=== PATIENT | male | born 1980 | race Caucasian/White ===

== ENCOUNTER 2021-02-27 09:50 | Day surgery (SDC) | payer OTHER ==
[~2021-02-27] VITALS: Ht 170.2 cm; Wt 73.9 kg
[~2021-02-27 09:50] MED LIST: NS 1,000 ML IV ONE
[2021-02-27] MEDS ORDERED: propofoL 200 MG/20 ML VIAL As Ordered ONE ×2 (10:09→10:29)
[2021-02-27] MEDS ORDERED: LIDOCAINE 2% 100MG/5ML SDV (FOR ANES.) As Ordered ONE (10:29)
[2021-02-27 11:11] VITALS: BP 108/59
== END 2021-02-27 11:40 | disposition home or self-care (01) ==
LOC: M OPP 09:50
PROVIDERS: ATTEND Internal Medicine Gastroenterology
DX: R19.4 Change in bowel habit (principal); K62.5 Hemorrhage of anus and rectum; K64.0 First degree hemorrhoids